=== PATIENT | female | born 1970 | race Caucasian/White ===

== ENCOUNTER 2023-03-25 07:10 | Day surgery (SDC) | payer BC, SELFPAY ==
[2023-03-25 07:25] VITALS: BMI 36.4
[2023-03-25 07:40] VITALS: BP 131/69
[2023-03-25] MEDS: NSS 298 ML IV (08:04)
[2023-03-25 09:32] LABS: ACT-LR - POC 223 Seconds (116-155)
[2023-03-25 09:39] LABS: ACT-LR - POC 203 Seconds (116-155)
[2023-03-25 09:50] VITALS: BP 166/85
--- NOTE | 2023-03-25 09:57 | ITS.CL.CATH ---
Data Deliverables Manager - Catheterization
Cardiac Catheterization
Procedure Report:
CARDIAC CATHETERIZATION REPORT
Date of Procedure: 03/25/2023
Referring: Lucas Aj M.D.
INDICATION: New cardiomyopathy.
PROCEDURE:
1. Left heart catheterization.
2. Coronary angiography.
3. Successful intravascular ultrasound of the proximal LAD and left main coronary artery.
ACCESS:
6 Guinean right radial artery.
CATHETERS:
1. 5 Guinean JR4.
2. 5 Guinean JL 3.5.
3. 6 Guinean JL 3.5 guiding catheter
HEMODYNAMIC DATA
Weight (kg): 99.3
AO (s/d/x, mmHg): 140/85/107
LV (s/x mmHg): 164/15 (A wave to 25)
AV (x, mmHg): 21.4 (pullback)
LEFT VENTRICULOGRAPHY: Not performed.
CORONARY ANGIOGRAPHY
Dominance: Right.
Left Main: Normal size, bifurcating vessel. There is significant angiographic tapering of the ostium of the vessel with pressure dampening on catheter engagement.
LAD: Normal size vessel giving rise to 3 diagonals. There is a densely calcified, 70-80% lesion in the ostium of the LAD. There is a 60-70% lesion in the mid vessel immediately after the second diagonal. The first diagonal is a small, 1.5 mm
vessel. There is a 70% lesion in the origin of the second diagonal.
Ramus: Congenitally absent.
Circumflex: Normal size, nondominant vessel that is essentially a large obtuse marginal. There is a densely calcified, 70�80% lesion in the proximal vessel.
RCA: Large size, dominant vessel with a significant posterolateral arcade. There is a 50% lesion in the origin of the RPDA.
INTERVENTION(S)
1. Successful IVUS of the proximal LAD and left main coronary artery.
Narrative:
The decision was made to perform intracoronary imaging. The diagnostic catheter was removed over a wire and exchanged for 6 Guinean JL 3.5 guiding catheter. The guiding catheter was advanced into the ascending aorta and seated in the left main
coronary artery. Similar to the diagnostic catheter, we noticed significant waveform dampening with engagement of the left main. Additional heparin was given to obtain an ACT greater than 250 seconds. After crossing the lesion with a coronary
wire, an IVUS catheter was advanced through the guiding catheter and into the ostium of the artery. Ring down was performed once the imaging crystal was no longer inside of the guiding catheter. The IVUS catheter was advanced into the proximal LAD.
Intravascular ultrasound was performed in a retrograde fashion using a slow pullback. Intracoronary imaging demonstrated significant atherosclerotic disease throughout the entire proximal LAD and into the left main. The ostial LAD demonstrated an
eccentric, densely calcified napkin ring lesion. In spite of significant catheter dampening, there was no clear left main coronary artery stenosis of significance. Minimal luminal area was >8 mmHg.
Closure Device: Vascular band.
Radiation (mGy): 683.45
DAP (cm2.Gy): 39.2912
Fluoroscopy time (minutes): 6.9
Sedation time (minutes): 40
CONCLUSIONS
1. Right dominant circulation with atherosclerosis within left main coronary artery associated with catheter dampening but no conclusive lesion, and underappreciated, eccentric 70-80%, densely calcified lesion in the ostial LAD, a 60-70% lesion in
the mid LAD, 70% lesion of the origin of the second diagonal, a densely calcified 70-80% lesion in the proximal circumflex and a 50% lesion in the origin of the RPDA.
2. Mildly elevated filling pressures (LVEDP = 15 mmHg at 99.3 kg), possibly appropriate given degree of LV dysfunction.
3. Mild to moderate aortic valve stenosis (aortic valve mean gradient 21.4 mmHg on pullback).
3. Moderate left ventricular dysfunction on echocardiogram (LV ejection fraction = 35% with LAD territory wall motion abnormality).
RECOMMENDATIONS:
1. Expectant management after cardiac catheterization via right radial approach.
2. Limited weight bearing on the right wrist for one week.
3. Discussed with CT surgery regarding optimal revascularization technique given history of radiation for Hodgkin's lymphoma, proximal vessel involvement with dense calcification and relatively young age. She denies overt symptoms, raising concern
for impaired anginal warning system.
4. Continue aspirin. Increase atorvastatin to 40 mg daily.
Copy to: Lucas Aj M.D., Renee Murcia D.O.
Brandin Garcia DO, FACC, FACP
[2023-03-25 10:05] VITALS: BP 175/70
[2023-03-25 10:20] VITALS: BP 168/83
[2023-03-25 10:35] VITALS: BP 201/94
[2023-03-25 10:50] VITALS: BP 180/79
== END 2023-03-25 13:00 | disposition home or self-care (01) ==
LOC: CATH 07:10
PROVIDERS: ATTENDING PHYSICIAN Internal Medicine Cardiovascular Disease; CONSULT PHYSICIAN Thoracic Surgery (Cardiothoracic Vascular Surgery); FAMILY PHYSICIAN Family Medicine; OTHER PHYSICIAN Internal Medicine Cardiovascular Disease
DX: I25.10 Atherosclerotic heart disease of native coronary artery without angina pectoris (principal); I35.0 Nonrheumatic aortic (valve) stenosis; I11.0 Hypertensive heart disease with heart failure; I50.22 Chronic systolic (congestive) heart failure; I42.9 Cardiomyopathy, unspecified; Z85.3 Personal history of malignant neoplasm of breast; I34.0 Nonrheumatic mitral (valve) insufficiency; Z87.891 Personal history of nicotine dependence; Z79.82 Long term (current) use of aspirin
CPT/HCPCS: 92978; C1894; C1887; C1753; 85347; 93458; Q9967

== ENCOUNTER → 2023-04-02 08:30 | Outpatient (REF) | payer BC, SELFPAY ==
[2023-04-02 08:11] VITALS: BMI 36.6
[2023-04-02 09:19] LABS: % Basophils 0.3 % (0-2); % Eosinophils 0.4 % (0-6); % Immature Granulocytes 0.6 % (0-0.5); % Lymphocytes 13.8 % (20.5-51.1); % Monocytes 6.2 % (1.7-9.3); % Neutrophils 78.7 % (42.2-75.2); Absolute Immature Granulocytes 0.1 10^3/uL (0-0.05); Absolute Lymphocytes 1.4 10^3/uL (1.2-3.4); Absolute Monocytes 0.6 10^3/uL (0.1-0.6); Absolute Neutrophils 8.2 10^3/uL (1.4-6.5); Hematocrit 35.3 % (37.0-47.0); Hemoglobin 12.4 g/dL (12.0-16.0); Mean Corp Hgb Conc. 35.1 g/dL (33.0-37.0); Mean Corpuscular Hgb 31.4 pg (27.0-31.0); Mean Corpuscular Volume 89.4 fL (81.0-99.0); Nucleated Red Blood Cells % 0 %; Platelet Count 216 10^3/uL (130-400); Red Blood Cell Count 3.95 10^6/uL (4.20-5.40); Red Cell Dist. Width 12.8 % (11.5-14.5); White Blood Cell Count 10.4 10^3/uL (4.8-10.8)
[2023-04-02 09:32] LABS: INR 1.12; PT 14.2 Sec (11.4-14.6)
[2023-04-02 09:33] LABS: APTT 30.4 Sec (23.4-35.0)
[2023-04-02 09:33] LABS: Urine Albumin Negative (Neg - Trace); Urine Bilirubin Negative (Negative); Urine Character Clear (Clear); Urine Color Straw; Urine Glucose Negative (Negative); Urine Ketone Negative (Negative); Urine Leukocyte Negative (Negative); Urine Nitrite Negative (Negative); Urine Occult Blood Negative (Negative); Urine Urobilinogen Negative (Neg - 1+)
[2023-04-02 09:40] LABS: ALT (SGPT) 31 U/L (0-35); AST (SGOT) 29 U/L (14-36); Albumin 4.4 g/dl (3.5-5.0); Alkaline Phosphatase 82 U/L (38-126); Blood Urea Nitrogen 11 mg/dl (7-17); Calcium 9.4 mg/dl (8.4-10.2); Carbon Dioxide 24 mmol/L (22-30); Chloride 104 mmol/L (98-107); Direct Bilirubin 0.4 mg/dl (0.0-0.4); Estimated Creatinine Clearance > 125 ml/min; Glucose 115 mg/dl (70-99); Sodium 137 mmol/L (135-145); Total Protein 7.3 g/dl (6.3-8.2); eGFR > 60.00
--- NOTE | 2023-04-02 10:13 | CM ---
Met with and Mrs. Shen in [facility]'s. She states prior to admission she resides with her spouse in a two story home with three steps to enter. She states she has a full flight of steps to get to bedroom/full bathroom. She states she has a powder
room on the first floor. She states prior to admission she was independent with ambulation and adls. She states she does not have any DME in the home. She states she has a prescription plan and uses [facility]. She states her spouse works from
home and he will be available to assist in her care if needed. The discharge plan is to return home with her spouse and a home visit by the Cardiothoracic Transitional Care Nurse when medically stable.
We reviewed pre-op and post-op routines. We reviewed the shower instructions. She has the soap,written instructions and the Cardiothoracic Surgery Educational Booklet. We also reviewed restrictions including driving restrictions and sternal
precautions. We discussed a home visit by the Cardiothoracic Transitional Care Nurse. She is agreeable to a home visit. The plan is for CABG on Saturday, April 08.
== END ==
LOC: SDSPAT 08:30
PROVIDERS: ATTENDING PHYSICIAN Thoracic Surgery (Cardiothoracic Vascular Surgery); FAMILY PHYSICIAN Family Medicine; OTHER PHYSICIAN Internal Medicine Cardiovascular Disease
DX: I25.10 Atherosclerotic heart disease of native coronary artery without angina pectoris (principal)
CPT/HCPCS: 36415; 80053; 81003; 82248; 83036; 85025; 85610; 85730; 86850; 86900; 86901; 87070; 93005; 93880; 93970; 94010

== ENCOUNTER → 2023-04-02 14:37 | Outpatient (REF) | payer BC, SELFPAY | LOC: HWRAD 14:37 | PROVIDERS: ATTENDING PHYSICIAN Thoracic Surgery (Cardiothoracic Vascular Surgery); FAMILY PHYSICIAN Family Medicine; REFERRING PHYSICIAN Internal Medicine Cardiovascular Disease | DX: I25.10 Atherosclerotic heart disease of native coronary artery without angina pectoris (principal) | CPT/HCPCS: 71275; 74174; Q9967 ==

== ENCOUNTER 2023-04-08 07:15 | Day surgery (SDC) | payer BC, SELFPAY ==
[2023-04-08] VITALS (12 sets, daily range): BP systolic 101–167; BP diastolic 70–91; BMI 36.2
[2023-04-08] MEDS: NSS 296 ML IV (08:05)
[2023-04-08] MEDS: PLAVIX 600 MG PO (08:26)
[2023-04-08 09:31] LABS: ACT-LR - POC 335 Seconds (116-155)
[2023-04-08 09:54] LABS: ACT-LR - POC 305 Seconds (116-155)
[2023-04-08 10:12] LABS: ACT-LR - POC 281 Seconds (116-155)
[2023-04-08 11:16] LABS: ACT-LR - POC 215 Seconds (116-155)
--- NOTE | 2023-04-08 11:22 | ITS.CL.ANGIO ---
Permit Specialist - Angioplasty
Angioplasty
Procedure Report:
CARDIAC CATHETERIZATION REPORT
Date of Procedure: 04/08/2023
Referring: Alex Russo M.D.
INDICATION: Multivessel disease, ischemic cardiomyopathy, not a surgical candidate.
PROCEDURE:
1. Left heart catheterization.
2. Coronary angiography.
3. Successful IFR of the ostial RPDA.
4. Successful PCI of the proximal circumflex.
5. Successful shockwave coronary lithotripsy of the ostial/proximal LAD.
6. Successful IVUS guided PCI of the ostial/proximal LAD.
7. Successful IFR of the mid LAD.
8. Successful IVUS guided PCI of the mid LAD.
ACCESS:
7 Bhutanese slender right radial artery.
CATHETERS:
1. 6 Bhutanese JR4 guiding catheter.
2. 6 Bhutanese EBU 3.5 guiding catheter with sideholes.
HEMODYNAMIC DATA
Weight (kg): 98.4
AO (s/d/x, mmHg): 122/79/98
LV (s/x mmHg): 143/10
LEFT VENTRICULOGRAPHY: Not performed.
CORONARY ANGIOGRAPHY
Dominance: Right.
Left Main: Normal size, bifurcating vessel. There is no coronary artery disease.
LAD: Normal size vessel giving rise to 3 diagonals. There is a densely calcified, 70-80% lesion in the ostium of the LAD. There is a 60-70% lesion in the mid vessel immediately after the second diagonal. There is a 70% lesion in the origin of
the second diagonal.
Ramus: Congenitally absent
Circumflex: Normal size, nondominant vessel that is essentially a single large obtuse marginal. There is a calcified, 80% lesion in the proximal vessel.
RCA: Large size, dominant vessel with a large posterolateral arcade. There is a 60% lesion in the origin of the RPDA.
INTERVENTION(S)
1. Successful IFR of the 60% RPDA lesion, demonstrating nonocclusive disease (IFR = 0.98).
2. Successful PCI of the 80% proximal circumflex lesion (Xience Skypoint 3.5 x 23 TOMMY, postdilated with a 3.5 NC balloon) with reduction in stenosis to 0%, maintaining ROMEL-3 flow.
3. Successful IVUS of the ostial/proximal LAD.
4. Successful coronary lithotripsy of the 70-80% ostial LAD lesion (Shockwave 3.0 x 12 coronary lithotripsy balloon).
5. Successful PCI of the 70-80% ostial LAD lesion (Xience Skypoint 3.0 x 15 TOMMY, postdilated with a 3.0 NC balloon) with reduction in stenosis to 0%, maintaining ROMEL-3 flow.
6. Successful IFR of the 60-70% mid LAD lesion, demonstrating occlusive disease (IFR = 0.75).
7. Successful PCI of the 60-70% mid LAD lesion (Xience Skypoint 2.5 x 28 TOMMY, postdilated with a 2.5 NC balloon) with reduction in stenosis to 0%, jailing the second diagonal but maintaining ROMEL-3 flow in all vessels.
8. Successful IVUS of the mid LAD lesion, demonstrating good stent apposition with some underexpansion.
9. Successful aggressive post dilation of the mid LAD stent (2.5 x 12 NC balloon to 18 mitchel distally, 18 mitchel mid stent and 20 mitchel in the proximal stent margin) with improved stent expansion.
Narrative:
The decision was made to perform physiologic testing. The 6 Bhutanese JR4 guiding catheter was advanced into the ascending aorta and seated in the right coronary artery. Additional heparin was given to obtain an ACT greater than 250 seconds. An iFR
wire was zeroed outside of the body, then inserted into the guiding sheath. The wire was advanced and the transducer was normalized just outside of the guiding catheter tip. The wire was advanced into the mid RPDA. Three iFR measurements were taken.
The lesion was determined to be nonocclusive (0.98).
We then turned our attention to the left coronary system. The 6 Bhutanese JR4 guiding catheter was removed over a wire and a 7Fr EBU 3.5 guiding catheter was advanced to the aortic root and seated in the left main coronary artery. Unfortunately, this
catheter caused a significant amount of dampening when engaged in the left main coronary artery. There were no 7 Bhutanese EBU 3.5 guiding catheter with sideholes available. This catheter was exchanged for a 6 Bhutanese EBU 3.5 guiding catheter with
sideholes. A Power Turn Flex wire was advanced into the distal obtuse marginal. A BMW wire was advanced into the distal LAD. The 80% proximal circumflex lesion was predilated with a 2.0 x 12 semi-compliant balloon to 12 mitchel. The semicompliant
balloon was removed and a 3.0 x 12 noncompliant balloon was advanced. The lesion was predilated again to 12 mitchel with good release. The non-compliant balloon was removed and a Xience Skypoint 3.5 x 23 drug-eluting stent was advanced. The stent was
deployed at 12 atmospheres. The stent balloon was removed. A 3.5 x 12 noncompliant balloon was advanced into the stent and the proximal stent was postdilated to 12 atmospheres. Angiography was performed in orthogonal views, confirming good stent
expansion and an excellent angiographic result.
We then turned our attention to the LAD system. The decision was made to perform intracoronary imaging. An IVUS catheter was advanced through the guiding catheter and into the ostium of the artery. Ring down was performed once the imaging crystal
was no longer inside of the guiding catheter. The IVUS catheter was advanced into the proximal LAD, beyond the ostial lesion. Intravascular ultrasound was performed in a retrograde fashion using a slow pullback. Intracoronary imaging demonstrated
atherosclerotic disease within the ostial vessel. The distal reference vessel was approximately 3.0 mm in diameter. The proximal/ostial vessel was densely calcified as it joined with the left main coronary artery.
The decision was made to proceed with intracoronary lithotripsy prior to stent placement. A Shockwave 3.0 x 12 coronary lithotripsy balloon was advanced over the wire and into the ostial/proximal LAD lesion. The balloon was sterilely connected to
the controller and prepped to negative pressure. Meticulous care was taken while positioning the shockwave balloon. Once in satisfactory position, the balloon was inflated to 4 mitchel. After confirming good contact with the vessel wall, 10 pulses
were delivered. After delivering 10 pulses, the balloon was inflated to 6 mitchel then deflated. The entire lesion was treated in a similar manner for total of 8 rounds. The balloon was withdrawn and saved for possible second use depending on vessel
expansion.
A Xience Skypoint 3.0 x 15 drug-eluting stent was advanced into the proximal/ostial LAD. Meticulous care was taken while positioning the stent, ensuring that 1 stent cell protruded into the left main coronary artery but flow into the circumflex was
maintained. The stent was deployed at 12 atmospheres. The stent balloon was removed. The previously used a 3.0 x 15 noncompliant balloon was advanced into the stent and the stent was postdilated to 14 atmospheres. Angiography was performed in
orthogonal views, confirming good stent expansion and an excellent angiographic result.
We then turned our attention to the 60-70% mid LAD lesion. The decision was made to perform physiologic testing. The power turn flex wire was withdrawn from the circumflex. An iFR wire was zeroed outside of the body, then inserted into the
guiding sheath. The wire was advanced and the transducer was normalized just outside of the guiding catheter tip. The wire was advanced into the distal LAD, beyond the lesion in question. Three iFR measurements were taken. The lesion was determined
to be occlusive (0.75). Step up was observed in the proximal LAD, proximal to the origin of the second diagonal.
The decision was made to proceed with percutaneous coronary intervention. The power Turn Flex wire was advanced next to the BMW wire and then into the second diagonal for protection. The 60-70% mid LAD lesion was predilated with a 2.0 x 12
semi-compliant balloon to 12 mitchel. The semi-compliant balloon was removed and a Xience Skypoint 2.5 x 28 drug-eluting stent was advanced. The stent was deployed at 12 atmospheres. The stent balloon was removed. A 2.5 x 15 noncompliant balloon was
advanced into the stent and the stent was postdilated to 12 atmospheres in the distal aspect and 14 mitchel in the proximal margin.
IVUS was repeated in the LAD. This showed that the mid LAD stent was well opposed but underexpanded in 2 areas. This did confirm that the reference vessel was appropriately sized to 2.5 mm. The IVUS catheter was withdrawn and a fresh, 2.5 x 12 NC
balloon was advanced. The distal stent was postdilated to 18 mitchel. The mid stent was postdilated to 18 mitchel. The proximal stent was postdilated to 20 mitchel. The noncompliant balloon was withdrawn.
Angiography was performed in orthogonal views, confirming good stent expansion and an excellent angiographic result. The coronary wire was withdrawn and the guide was disengaged from the artery. The catheter was removed over a standard J-wire.
Closure Device: Vascular band.
Radiation (mGy): 1932.80
DAP (cm2.Gy): 152.29
Fluoroscopy time (minutes): 29.8
Sedation time (minutes): 140
CONCLUSIONS
1. Severe, multivessel coronary artery disease. Not a candidate for surgery secondary to prior radiation with Hodgkin's lymphoma, flap creation with ligation and redirection of bilateral AZUL grafts.
2. Right dominant circulation with a nonocclusive 60% ostial RPDA lesion (IFR = 0.98), and 80% proximal circumflex lesion status post successful PCI (Xience Skypoint 3.5 x 23 TOMMY, postdilated proximally with a 3.5 NC balloon) with reduction in
stenosis to 0%, maintaining ROMEL-3 flow; a densely calcified ostial/proximal LAD lesion status post successful IVUS guided coronary lithotripsy (shockwave 3.0 x 12 lithotripsy balloon) and PCI (Xience Skypoint 3.0 x 15 TOMMY, postdilated with a 3.0 NC
balloon) with reduction in stenosis to 0%, maintaining ROMEL-3 flow; and occlusive 60-70% mid LAD lesion (IFR = 0.75) status post successful IVUS guided PCI (Xience Skypoint 2.5 x 28 TOMMY, postdilated with a 2.5 NC balloon to 18 mitchel in the mid and
distal segments, 20 mitchel in the proximal margin) with reduction in stenosis to 0%, maintaining ROMEL-3 flow.
3. Normal filling pressures (LVEDP = 10 mmHg at 98.4 kg).
RECOMMENDATIONS:
1. Expectant management after cardiac catheterization via right radial approach.
2. Limited weight bearing on the right for one week.
3. Dual antiplatelet therapy with aspirin and clopidogrel for at least 12 months, possibly lifelong.
4. Guideline directed medical therapy as hemodynamics will tolerate.
5. Tentative plans for upgrade of pacemaker to CLEARING SUPERVISOR�D at the discretion of electrophysiology.
Copy to: Alex Russo M.D., Hollie Gomez M.D., Renee Murcia D.O.
Brandin Garcia DO, FACC, FACP
[2023-04-08] MEDS: NSS 1000 IV (12:23)
--- NOTE | 2023-04-08 12:29 | PTCARENOTE ---
Received patient from the civil laboratory technician after PCI via right radial. Radial band in place with palpable radial pulse, no bleeding or hematoma noted. V paced on the monitor. Patient denies any pain or discomfort. Oriented to the room and plan of care,
monitoring VS. Patient assisted to the bathroom and voided qs. at the bedside now, patient ordering lunch. Call mcdowell within reach.
[2023-04-08 15:01] LABS: ACT-LR - POC > 397 Seconds (116-155)
--- NOTE | 2023-04-08 15:46 | PTCARENOTE ---
Band removed from right wrist, dressing clean and dry with radial pulse palpable. Patient assisted to the bathroom. Denies any pain or discomfort, at the bedside.
[2023-04-08] MEDS: ZESTRIL 20 MG PO (17:39)
--- NOTE | 2023-04-09 02:40 | PTCARENOTE ---
Patient denied any complaints of pain or discomfort when questioned earlier. Right radial cath site wnl. V-Paced on the monitor in the 80's. Sleeping at present.
[2023-04-09 04:17] VITALS: BP 128/87
[2023-04-09 04:41] VITALS: BMI 36.0
[2023-04-09 04:57] LABS: Hematocrit 33.3 % (37.0-47.0); Hemoglobin 11.7 g/dL (12.0-16.0); Mean Corp Hgb Conc. 35.1 g/dL (33.0-37.0); Mean Corpuscular Volume 88.1 fL (81.0-99.0); Mean Platelet Volume 11.7 fL (7.4-10.4); Platelet Count 209 10^3/uL (130-400); Red Blood Cell Count 3.78 10^6/uL (4.20-5.40); Red Cell Dist. Width 12.9 % (11.5-14.5); White Blood Cell Count 9.1 10^3/uL (4.8-10.8)
[2023-04-09 05:22] LABS: Blood Urea Nitrogen 9 mg/dl (7-17); Calcium 9.2 mg/dl (8.4-10.2); Carbon Dioxide 24 mmol/L (22-30); Chloride 106 mmol/L (98-107); Estimated Creatinine Clearance > 125 ml/min; Glucose 114 mg/dl (70-99); HDL Cholesterol 28 mg/dl; LDL Cholesterol, Calculated 75 mg/dl; Potassium 3.9 mmol/L (3.5-5.1); Sodium 138 mmol/L (135-145); Total Cholesterol 128 mg/dl (50-199); Triglyceride 125 mg/dl (10-149); Very Low Density Lipoprotein 25 mg/dl (0-30); eGFR > 60.00
--- NOTE | 2023-04-09 08:25 | W.PN.CARDCBS ---
Addendum entered and electronically signed by Ghanshyam Lopez MD 04/09/23 10:04:
-
I saw and examined the patient.
The OUTSIDE B2B SALES or PA's note was reviewed and I agree with the note.
Comment: cath site stable
she feels well and is ok for dc to home
Original Note:
Today's Communication / Plan
-
DAPT w/asa, plavix
echo in 2-3 months
Bi-V device upgrade per EP
cardiac rehab
home today
Impression / Plan
-
PCP: Renee Murcia MD
CDY: Jarvis Knapp MD
52 y/o, PMH sig for NICM w/chronic diastolic HFpEF 55-60%, LBBB, CHB w/PPM, Hodgkin's lymphoma w/chemo/mantle radiation (1996), BrCa w/bilat mastectomies w/TRAM flap (2017). Routine echo last month with new drop in EF to 35% and apical LAD WMA,
mild-mod MR. Cath on 03/25 with severe multivessel CAD and was referred to CTS. Ultimately not a candidate d/t prior radiation, surgeries.
Presents now for multivessel PCI.
[facility] 04/08-
60% RPDA- iFR negative (0.98)
80% prox LCx angioplasty/TOMMY
70-80% ost/prox LAD IVUS, lithotripsy, angioplasty/TOMMY
60-70% mid LAD iFR +(0.75), s/p angioplasty/TOMMY with aggressive post dilation
IMPRESSION/PLAN:
Severe multivessel CAD
s/p LCx PCI, ost/prox LAD lithotripsy/PCI, mid LAD PCI
Tele- Vpaced w/underlying sinus rhythm, 80s
Radial cath site stable
Plavix loaded post cath, to remain on DAPT w/asa, plavix
continue metoprolol, lisinopril
cardiac rehab
followup w/Dr. Knapp as scheduled
home today
Cardiomyopathy/Chronic systolic HFrEF 35%/LBBB
new drop in EF on echo 02/2023
could benefit from epicardial LV lead placement for Bi-V PPM upgrade
outpt echo in 2-3 months
continue max maikel GDMT with lisinopril, metoprolol, lasix, spironolactone
consider SGLT2 inhibitor per primary cards
HLD- lipid profile noted, continue atorvastatin as before
HTN- stable on current meds
Hodgkin Lymphoma w/Mantle radiation/chemo (1996)
Breast Cancer, s/p bilat mastectomies w/TRAM flap reconstruction (02/2017)
Progress Note - Can Maker
Subjective
Date of Service: April 09, 2023
Denies cp/palps/dyspnea
oob ambulating
cath site without pain
Objective
Labs:
04/09/23 04:25
04/09/23 04:25
Labs
Hgb 11.7 g/dL (12.0-16.0) L 04/09/23 04:25
Hct 33.3 % (37.0-47.0) L 04/09/23 04:25
Plt Count 209 10^3/uL (130-400) 04/09/23 04:25
Sodium 138 mmol/L (135-145) 04/09/23 04:25
Potassium 3.9 mmol/L (3.5-5.1) 04/09/23 04:25
BUN 9 mg/dl (7-17) 04/09/23 04:25
Creatinine 0.5 mg/dL (0.6-1.0) L 04/09/23 04:25
Glucose 114 mg/dl (70-99) H 04/09/23 04:25
Vital Signs and I&O:
Vital Signs
Temp Pulse Resp BP Pulse Ox
97.9 F 91 16 128/87 93
04/09/23 07:39 04/09/23 07:00 04/09/23 07:39 04/09/23 04:17 04/09/23 07:39
Vital Signs
Temp Pulse Resp BP Pulse Ox
97.9 F 91 16 128/87 93
04/09/23 07:39 04/09/23 07:00 04/09/23 07:39 04/09/23 04:17 04/09/23 07:39
Intake & Output
04/07/23 04/08/23 04/09/23 04/10/23
06:59 06:59 06:59 06:59
Intake Total 1939 480 / 480
Balance 1939 480 / 480
Physical Exam
Physical Exam
AAOx3, MAEE 5/5
RRR S1 S2 no murmurs
CTA bilat, non labored
soft abd, + bs
right radial cath site without ht/bleeding, non tender
bilat extremities w/papable distal pulses, no edema
--- NOTE | 2023-04-09 09:16 | W.DS.TRANS ---
DC Summary - Journal Clerk
-
Discharge Instructions:
Sleep Apnea Risk Intermediate
Discharge Diagnosis/Procedures Angioplasty and stent x1 to Left Circumflex
artery, Shockwave with angioplasty and stent x2
to Left Anterior Descending artery
Diet Low Cholesterol
Driving Restrictions No driving for 24 hours
Other Services Cardiac Rehab
Instructions:
Stand-Alone Forms: DC Instructions- Cath/EP Lab
Changes to Home Medications: Yes
Discharge Medications:
DC Medications w/original date entered in [employer]
furosemide 20 mg tablet (Lasix) 20 mg PO DAILY Fluid retention/Swelling 04/15/21
lisinopril 20 mg tablet 20 mg PO QPM Blood pressure 04/15/21
multivitamin with folic acid 400 mcg tablet (Tab-A-Richard) 1 tab PO DAILY Supplement 04/15/21
spironolactone 25 mg tablet 12.5 mg PO DAILY Fluid retention/Swelling 04/15/21
aspirin 81 mg tablet,delayed release 81 mg PO DAILY 03/25/23
atorvastatin 40 mg tablet 40 mg PO DAILY #90 tabs 03/25/23
metoprolol succinate 50 mg tablet,extended release 24 hr 50 mg PO DAILY 03/25/23
nitroglycerin 0.4 mg sublingual tablet 0.4 mg sublingual [id number] PRN chest pain #25 tabs 03/25/23
clopidogrel 75 mg tablet 75 mg PO DAILY #90 tabs 04/09/23
Home Medication Changes
NEW: clopidogrel
Pending Results: No
[2023-04-09 10:25] VITALS: BP 124/72
[2023-04-09] MEDS: LASIX 20 MG PO (10:28)
[2023-04-09] MEDS: TOPROL XL 50 MG PO (10:28)
[2023-04-09] MEDS: PLAVIX 75 MG PO (10:28)
[2023-04-09] MEDS: LIPITOR 40 MG PO (10:28)
[2023-04-09] MEDS: ALDACTONE 12.5 MG PO (10:28)
[2023-04-09] MEDS: ASPIR LOW (ENTERIC COATED) 81 MG PO (10:28)
--- NOTE | 2023-04-09 11:04 | CM ---
spoke to pt in room, she is prev indep, lives withher husb in a 2 story home with 4 steps to enter. she denies any dc planning needs or dme's. plan is for dc to home when medically stable.
== END 2023-04-09 11:24 | disposition home or self-care (01) ==
LOC: CATH 07:15
PROVIDERS: Nurse Practitioner; ATTENDING PHYSICIAN Internal Medicine Cardiovascular Disease; FAMILY PHYSICIAN Family Medicine
DX: I25.10 Atherosclerotic heart disease of native coronary artery without angina pectoris (principal); I25.5 Ischemic cardiomyopathy; Z95.5 Presence of coronary angioplasty implant and graft; I11.0 Hypertensive heart disease with heart failure; I50.22 Chronic systolic (congestive) heart failure; I44.7 Left bundle-branch block, unspecified; I44.2 Atrioventricular block, complete; E78.5 Hyperlipidemia, unspecified; C81.90 Hodgkin lymphoma, unspecified, unspecified site; Z85.3 Personal history of malignant neoplasm of breast; Z90.13 Acquired absence of bilateral breasts and nipples; Z79.82 Long term (current) use of aspirin; Z79.02 Long term (current) use of antithrombotics/antiplatelets
CPT/HCPCS: 92978; 92972; 80048; 80061; 85027; 85347; 93005; 93458; 93571; 93572; C1725; C1753; C1769; C1874; C1887; C1894; C9600; C9601; Q9967

== ENCOUNTER 2023-05-17 08:15 | Outpatient (RCR) | payer BC, SELFPAY | END 2023-05-17 23:59 | disposition home or self-care (01) | LOC: CRHB 08:15 | PROVIDERS: ATTENDING PHYSICIAN Internal Medicine Cardiovascular Disease; FAMILY PHYSICIAN Family Medicine | DX: I25.10 Atherosclerotic heart disease of native coronary artery without angina pectoris (principal); Z95.5 Presence of coronary angioplasty implant and graft | CPT/HCPCS: 93797; 93798 ==

== ENCOUNTER → 2023-06-06 11:00 | Outpatient (REF) | payer BC, SELFPAY | LOC: HWRAD 11:00 | PROVIDERS: ATTENDING PHYSICIAN Surgery Vascular Surgery; FAMILY PHYSICIAN Family Medicine | DX: I65.29 Occlusion and stenosis of unspecified carotid artery (principal) | CPT/HCPCS: 70496; 70498; Q9967 ==

== ENCOUNTER 2023-06-17 08:23 | Outpatient (RCR) | payer BC, SELFPAY | END 2023-06-17 23:59 | disposition home or self-care (01) | LOC: CRHB 08:23 | PROVIDERS: ATTENDING PHYSICIAN Internal Medicine Cardiovascular Disease; FAMILY PHYSICIAN Family Medicine | DX: Z95.5 Presence of coronary angioplasty implant and graft (principal); I25.10 Atherosclerotic heart disease of native coronary artery without angina pectoris | CPT/HCPCS: 93797; 93798 ==

== ENCOUNTER 2023-07-11 08:36 | Outpatient (RCR) | payer BC, SELFPAY | END 2023-07-11 23:59 | disposition home or self-care (01) | LOC: CRHB 08:36 | PROVIDERS: ATTENDING PHYSICIAN Internal Medicine Cardiovascular Disease; FAMILY PHYSICIAN Family Medicine | DX: Z95.5 Presence of coronary angioplasty implant and graft (principal); I25.10 Atherosclerotic heart disease of native coronary artery without angina pectoris | CPT/HCPCS: 93797; 93798 ==

== ENCOUNTER 2023-08-13 11:05 | Emergency (ER) | payer BC, SELFPAY ==
--- NOTE | 2023-08-13 11:08 | ED.GENMED ---
History of Present Illness
<Angela Alston PA-C - Last Filed: 08/13/23 15:00>
General
Chief Complaint: Fainting/Passed Out
Source: patient
Exam Limitations: none
Time Seen by Provider: 08/13/23 11:06
Nursing documentation reviewed up to this point in time: agreed with
History of Present Illness
History of Present Illness:
This is a 53 y/o female with a past medical hx of CAD, CHF, Hodgkin's lymphoma, breast cancer, hypertension, hyperlipidemia presenting emergency department today with concerns of a syncopal episode. Patient was sent here by her car knocker
Aria. Patient was going for her echo today when she went back out to the waiting room after the procedure and started to feel dizzy, lightheaded, and subsequently lost consciousness, this episode lasted around 10 to 20 seconds. A rapid
response was called in the cardiology suite. When emergency rooms staff arrived, she is diaphoretic and pale, and her blood pressure was low. Upon arrival to the emergency department room, her pulse ox was noted to be 90 and she was started on 2 L
of oxygen, however patient denies feeling short of breath. On my arrival to the room to see patient, she states that she feels well and back to her baseline, only notes some mild fatigue. Denies chest pain. Of note, patient was given IV contrast
Lumason for the echo and her car knocker is concerned that this may represent a reaction to the wound medicine versus vasovagal syncope.
Past History
<Angela Alston PA-C - Last Filed: 08/13/23 15:00>
Past History
ED Past Medical History: Cancer (Breast cancer) and CHF
ED Past Surgical History: Other (Bilateral mastectomy)
Social History
Tobacco: Non-smoker
Alcohol: None
Drug: None
Personal:
Living: with family
Review of Systems
<Angela Alston PA-C - Last Filed: 08/13/23 15:00>
Review of Systems
All Other Systems: ROS reviewed and negative except as documented in HPI and ROS
Phy Exam
<Angela Alston PA-C - Last Filed: 08/13/23 15:00>
Physical Exam
Physical Exam:
General: Patient is well appearing and in no acute distress; non-toxic
Skin: Warm and dry, no rashes or lesions
Head: Normocephalic, atraumatic
Eyes: Sclera non-icteric. EOMs intact. PERRLA.
Cardiac: Systolic murmur noted, otherwise regular rate and rhythm (looked back at old records, mild aortic stenosis noted)
Peripheral Vascular: No lower extremity swelling or edema
Pulm: Normal respiratory effort, no wheezes, rales, rhonchi
Abdomen: No abdominal tenderness to palpation
Neuro: CN II-XII intact, no focal neurologic deficits.
Psychiatric: Appropriate mood and affect.
Course
<Angela Alston PA-C - Last Filed: 08/13/23 15:00>
Orders/Labs/Results
Orders:
Orders
08/13/23 11:16
EKG [Electrocardiogram (*1)] Urgent
Reason for Study: Syncope
EKG- Treatment ONCE
08/13/23 11:36
Interrogate Pacemaker- Treatment ONCE
08/13/23 12:24
Complete Blood Count/With Diff Urgent
Comprehensive Metabolic Panel Urgent
08/13/23 12:32
Dexamethasone Sod Phosphate [Decadron] 10 mg IV NOW STA
Diphenhydramine [Benadryl] 25 mg IV NOW STA
Famotidine [Pepcid] 20 mg PO NOW STA
08/13/23 12:35
Famotidine [Pepcid] 20 mg .ROUTE .STK-MED ONE
08/13/23 12:40
Famotidine [Pepcid] 20 mg IV NOW STA
Abnormal Lab Results
08/13/23
12:24
MPV 11.5 H fL
(7.4-10.4)
Abs Immat Gran (auto) 0.1 H 10^3/uL
(0-0.05)
Absolute Neuts (auto) 8.1 H 10^3/uL
(1.4-6.5)
Absolute Lymphs (auto) 0.9 L 10^3/uL
(1.2-3.4)
Immature Gran % 1.1 H %
(0-0.5)
Neutrophils % 87.9 H %
(42.2-75.2)
Lymphocytes % 10.2 L %
(20.5-51.1)
Monocytes % 0.5 L %
(1.7-9.3)
Chloride 110 H mmol/L
(98-107)
Carbon Dioxide 21 L mmol/L
(22-30)
Glucose 103 H mg/dl
(70-99)
08/13/23 12:24
08/13/23 12:24
Vital Signs
Initial and Last Documented VS:
Initial Vital Signs
Temp Pulse Resp BP Pulse Ox
97.8 F 60 13 102/71 90
08/13/23 11:12 08/13/23 11:12 08/13/23 11:12 08/13/23 11:12 08/13/23 11:12
Last Documented Vital Signs
Temp Pulse Resp BP Pulse Ox
97.8 F 74 16 135/71 95
08/13/23 11:12 08/13/23 13:00 08/13/23 13:00 08/13/23 13:00 08/13/23 13:00
Lisalt;Tobi Gordillo MD - Last Filed: 08/13/23 21:55>
Orders/Labs/Results
Orders:
Orders
08/13/23 11:16
EKG [Electrocardiogram (*1)] Urgent
Reason for Study: Syncope
EKG- Treatment ONCE
08/13/23 11:36
Interrogate Pacemaker- Treatment ONCE
08/13/23 12:24
Complete Blood Count/With Diff Urgent
Comprehensive Metabolic Panel Urgent
08/13/23 12:32
Dexamethasone Sod Phosphate [Decadron] 10 mg IV NOW STA
Diphenhydramine [Benadryl] 25 mg IV NOW STA
Famotidine [Pepcid] 20 mg PO NOW STA
08/13/23 12:35
Famotidine [Pepcid] 20 mg .ROUTE .STK-MED ONE
08/13/23 12:40
Famotidine [Pepcid] 20 mg IV NOW STA
Abnormal Lab Results
08/13/23
12:24
MPV 11.5 H fL
(7.4-10.4)
Abs Immat Gran (auto) 0.1 H 10^3/uL
(0-0.05)
Absolute Neuts (auto) 8.1 H 10^3/uL
(1.4-6.5)
Absolute Lymphs (auto) 0.9 L 10^3/uL
(1.2-3.4)
Immature Gran % 1.1 H %
(0-0.5)
Neutrophils % 87.9 H %
(42.2-75.2)
Lymphocytes % 10.2 L %
(20.5-51.1)
Monocytes % 0.5 L %
(1.7-9.3)
Chloride 110 H mmol/L
(98-107)
Carbon Dioxide 21 L mmol/L
(22-30)
Glucose 103 H mg/dl
(70-99)
08/13/23 12:24
08/13/23 12:24
Vital Signs
Initial and Last Documented VS:
Initial Vital Signs
Temp Pulse Resp BP Pulse Ox
97.8 F 60 13 102/71 90
08/13/23 11:12 08/13/23 11:12 08/13/23 11:12 08/13/23 11:12 08/13/23 11:12
Last Documented Vital Signs
Temp Pulse Resp BP Pulse Ox
97.8 F 74 16 135/71 95
08/13/23 11:12 08/13/23 13:00 08/13/23 13:00 08/13/23 13:00 08/13/23 13:00
<Angela Alston PA-C - Last Filed: 08/13/23 15:00>
MDM/Problems Addressed
Differential Diagnosis Includes:
ddx include vasovagal syncope, medication reaction, dysrhythmia
MDM/Problems Addressed:
Syncopal Episode:
This is a 53 y/o female with a past medical hx of CAD, CHF, Hodgkin's lymphoma, breast cancer, hypertension, hyperlipidemia presenting emergency department today with concerns of a syncopal episode. Patient was sent here by her car knocker
Aria. Patient had a syncopal episode following administration of lumason. She subsequently started to develop abdominal pain, nausea, and dizziness. Considering her symptoms occurred shortly after administration of this drug, this is the
second time receiving this drug, and considering her symptoms improved with famotidine, decadron, and benadryl, this likely represents an allergic reaction. CBC and CMP unremarkable. VSS. Pacemaker interrogation negative for any dysrhythmia. Patient
asymptomatic upon discharge. Patient denies chest pain, shortness of breath. Patient stable for discharge to follow up with Dr. Goel.
Chronic conditions affecting care:
CAD, CHF, Hodgkin's lymphoma, breast cancer, hypertension, hyperlipidemia
Acute Exacerbation and/or Progression of Chronic Illness:
CAD, CHF, Hodgkin's lymphoma, breast cancer, hypertension, hyperlipidemia
<Angela Alston PA-C - Last Filed: 08/13/23 15:00>
*Pulse Oximetry
Patient hypoxic: no
*Intelligence Consultant Interpretation
Rate: normal
Interpretation: normal
Heart Rate: 65
*Critical Care Note
Total Time (30-74mins, 75-104mins- exclusive of procedures): Not Applicable
Data Reviewed
Review of Other/Old Records Reveals: Discharge Summary (reviewed discharge summary from 04/09/23)
Source: patient and records
<Angela Alston PA-C - Last Filed: 08/13/23 15:00>
Patient Management
Escalation/DeEscalation of care consider admission/obs:
Admission not indicated. Reviewed this case with my attending Dr. Gordillo.
<Angela Alston PA-C - Last Filed: 08/13/23 15:00>
Update Note
Update Note:
Patient slightly hypoxic to presentation to ER with O2 sat 89-90%, placed on 2L sating 95%, patient denies shortness of breath, lung sounds remain clear.
Dr. Gordillo and I were called into the room an hour after patient has been in the ER after patient had an acute episode of dizziness and abdominal pain. We subsequently gave her famotidine, Benadryl, Decadron to address a potential allergic reaction.
Lung sounds clear.
1:11 PM�reassessed patient, states she is feeling a lot better but just a bit drowsy. Patient denies any shortness of breath, any chest pain, any tongue or lip swelling.
2:28 PM--patient states that she feels a lot better. Patient was able to walk without any symptoms, walking pulse ox stable without oxygen, patient stable for discharge.
ED Attending Note
<Angela Alston PA-C - Last Filed: 08/13/23 15:00>
-
Portions of this chart may have been created with voice recognition software.� Occasional wrong word or��sound alike� substitutions may have occurred due to the inherent limitations of voice recognition software.
<Tobi Gordillo MD - Last Filed: 08/13/23 21:55>
ED Attending Note
Patient seen and examined by attending physician: Yes
ED Attending Note:
Pt presents to ED secondary to dizziness, nausea and weakness, shortly after receiving iv injection for stress echocardiogram. Pt lost consciousness for approx 10-20 seconds while waiting in the waiting room. Denies fever/chills. Denies chest pain.
Denies sob. Denies headache. Denies previous history of similar symptoms. When the incident occurred, rapid response was called in the hospital. Pt was initially found to be pale, diaphoretic and hypotensive.
General: well nourished female, in mild distress. afebrile
Heent: nc/at. eomi
Lungs: cta.
Heart: rrr. no murmur.
Abd: soft and nontender.
Neuro: aao x 3. no focal neurological deficit.
History and exam concerning for likely an acute reaction to iv injection. Pt given treatment via benadryl, pepcid, and decadron with improvement in symptoms. Pt able to ambulate independently with steady gait, at time of discharge. Pt is
hemodynamically stable, without any distress at time of discharge.
Discharge Plan
Departure
Patient Disposition: Home (Routine Discharge)
Date of Disposition: 08/13/23
Time of Disposition: 14:28
Patient with high blood pressure during this ER visit?: Yes
Condition: Good
Discharge Problem:
Allergic reaction
Instructions: Dizziness, Nonvertigo, (DC), Allergic Reaction ED, BLOOD PRESSURE
Prescriptions:
No Action
lisinopril 20 MG tablet
20 mg PO QPM
furosemide [Lasix] 20 MG tablet
20 mg PO DAILY
spironolactone 25 MG tablet
12.5 mg PO DAILY
multivitamin with folic acid [Tab-A-Richard] 1 TABLET tablet
1 tab PO DAILY
aspirin 81 mg Tablet,Delayed Release (Dr/Ec)
81 mg PO DAILY
metoprolol succinate 50 mg Tablet Extended Release 24 Hr
50 mg PO DAILY
atorvastatin 40 mg tablet
40 mg PO DAILY Qty: 90 3RF
nitroglycerin 0.4 mg tablet, sublingual
0.4 mg sublingual [id number] PRN (Reason: chest pain) Qty: 25 2RF
clopidogrel 75 mg Tablet
75 mg PO DAILY Qty: 90 3RF
Referrals:
Renee Murcia, DO [Family Provider] -
Activity Restrictions/Additional Instructions:
Please schedule a follow up appointment with Dr. Goel.
Please return emergency department should you experience a recurrence of your symptoms, tongue or lip swelling, trouble breathing, chest pain, abdominal pain, fevers or chills, syncopal episodes, dizziness, or any other signs or symptoms concerning
to you.
Interventions
Interventions:
*Risk Screen - Suicide Last Done: 08/13/23 11:12
*General Assessment Last Done: 08/13/23 11:12
*Neglect/Abuse Screening Last Done: 08/13/23 11:40
ED- Fall Risk Assessment Last Done: 08/13/23 11:40
*ED COVID-19 Vaccine History Last Done: 08/13/23 11:40
*Nursing Disposition Last Done: 08/13/23 14:51
ED- Cardiac Assessment Last Done: 08/13/23 11:40
ED- Neurological Assessment Last Done: 08/13/23 11:40
Discharge Date and Time
Discharge Date/Time: 08/13/23 14:52
Print Language: FAROESE
[2023-08-13 11:12] VITALS: BP 102/71; BMI 37.6
[2023-08-13 12:35] LABS: % Basophils 0.2 % (0-2); % Eosinophils 0.1 % (0-6); % Immature Granulocytes 1.1 % (0-0.5); % Lymphocytes 10.2 % (20.5-51.1); % Monocytes 0.5 % (1.7-9.3); % Neutrophils 87.9 % (42.2-75.2); Absolute Immature Granulocytes 0.1 10^3/uL (0-0.05); Absolute Lymphocytes 0.9 10^3/uL (1.2-3.4); Absolute Monocytes 0.1 10^3/uL (0.1-0.6); Absolute Neutrophils 8.1 10^3/uL (1.4-6.5); Mean Corp Hgb Conc. 33.3 g/dL (33.0-37.0); Mean Corpuscular Hgb 30.2 pg (27.0-31.0); Mean Corpuscular Volume 90.7 fL (81.0-99.0); Mean Platelet Volume 11.5 fL (7.4-10.4); Nucleated Red Blood Cells % 0 %; Platelet Count 189 10^3/uL (130-400); Red Blood Cell Count 4.63 10^6/uL (4.20-5.40); Red Cell Dist. Width 13.2 % (11.5-14.5); White Blood Cell Count 9.2 10^3/uL (4.8-10.8)
[2023-08-13] MEDS: BENADRYL 25 MG IV (12:39)
[2023-08-13] MEDS: DECADRON 10 MG IV (12:39)
[2023-08-13] MEDS: PEPCID 20 MG IV (12:40)
[2023-08-13 12:51] LABS: ALT (SGPT) 24 U/L (0-35); AST (SGOT) 35 U/L (14-36); Albumin 4.2 g/dl (3.5-5.0); Alkaline Phosphatase 77 U/L (38-126); Blood Urea Nitrogen 16 mg/dl (7-17); Calcium 9.6 mg/dl (8.4-10.2); Carbon Dioxide 21 mmol/L (22-30); Chloride 110 mmol/L (98-107); Estimated Creatinine Clearance 118 ml/min; Glucose 103 mg/dl (70-99); Sodium 143 mmol/L (135-145); Total Protein 6.8 g/dl (6.3-8.2); eGFR > 60.00
[2023-08-13 13:00] VITALS: BP 135/71
== END 2023-08-13 14:52 | disposition home or self-care (01) ==
LOC: EMR 11:05
PROVIDERS: Physician Assistant; EMERGENCY PHYSICIAN Emergency Medicine; FAMILY PHYSICIAN Family Medicine
DX: R55 Syncope and collapse (principal); R10.9 Unspecified abdominal pain; R11.0 Nausea; T50.995A Adverse effect of other drugs, medicaments and biological substances, initial encounter; Y92.238 Other place in hospital as the place of occurrence of the external cause; I25.10 Atherosclerotic heart disease of native coronary artery without angina pectoris; C81.90 Hodgkin lymphoma, unspecified, unspecified site; I11.0 Hypertensive heart disease with heart failure; I50.9 Heart failure, unspecified; E78.5 Hyperlipidemia, unspecified; Z95.0 Presence of cardiac pacemaker; Z95.5 Presence of coronary angioplasty implant and graft; Z85.3 Personal history of malignant neoplasm of breast; Z90.13 Acquired absence of bilateral breasts and nipples
CPT/HCPCS: 99285; 93288; 96374; 96375 ×2; 80053; 85025; 93005; 93306; Q9950

== ENCOUNTER 2023-09-19 08:19 | Inpatient (IN) | payer BC, SELFPAY ==
[2023-09-16 10:08] VITALS: BMI 35.4
[2023-09-16 10:55] LABS: % Basophils 0.4 % (0-2); % Eosinophils 0.5 % (0-6); % Immature Granulocytes 0.8 % (0-0.5); % Lymphocytes 19.9 % (20.5-51.1); % Monocytes 6.9 % (1.7-9.3); % Neutrophils 71.5 % (42.2-75.2); Absolute Immature Granulocytes 0.1 10^3/uL (0-0.05); Absolute Lymphocytes 1.5 10^3/uL (1.2-3.4); Absolute Monocytes 0.5 10^3/uL (0.1-0.6); Absolute Neutrophils 5.5 10^3/uL (1.4-6.5); Hematocrit 39.1 % (37.0-47.0); Hemoglobin 13.6 g/dL (12.0-16.0); Mean Corp Hgb Conc. 34.8 g/dL (33.0-37.0); Mean Corpuscular Hgb 30.5 pg (27.0-31.0); Mean Corpuscular Volume 87.7 fL (81.0-99.0); Nucleated Red Blood Cells % 0 %; Platelet Count 194 10^3/uL (130-400); Red Blood Cell Count 4.46 10^6/uL (4.20-5.40); Red Cell Dist. Width 13.7 % (11.5-14.5); White Blood Cell Count 7.6 10^3/uL (4.8-10.8)
[2023-09-16 11:01] LABS: INR 1.04; PT 13.4 Sec (11.4-14.6)
[2023-09-16 11:16] LABS: Blood Urea Nitrogen 16 mg/dl (7-17); Calcium 10.2 mg/dl (8.4-10.2); Carbon Dioxide 25 mmol/L (22-30); Chloride 105 mmol/L (98-107); Estimated Creatinine Clearance 121 ml/min; Glucose 109 mg/dl (70-99); Potassium 4.3 mmol/L (3.5-5.1); Sodium 140 mmol/L (135-145); eGFR > 60.00
[2023-09-19] VITALS (16 sets, daily range): BP systolic 96–130; BP diastolic 24–71; BMI 35.9; BMI 35.8
[2023-09-19] MEDS: BACTROBAN NASAL 1 GRAM NASAL (09:03)
[2023-09-19] MEDS: PERIDEX 0.12% ORAL RINSE 15 ML PO (09:03)
--- NOTE | 2023-09-19 09:25 | W.SUR.PREOP ---
Pre-Operative Surgical Note
-
I have examined this patient prior to the performance of the scheduled procedure.
The patient's condition is unchanged from the time of the current History and
Physical and the patient is able to undergo the scheduled procedure.
--- NOTE | 2023-09-19 12:00 | W.SUR.POST ---
Surgical Immediate Post Op
Note
Pre Op Diagnosis: Carotid stenosis
Post Op Diagnosis: Carotid stenosis
Procedure Performed: Right carotid endarterectomy with bovine pericardial patch angioplasty and EEG monitoring
Primary Surgeon: Akira
Assist: López MOYA
Anesthesia: General
Estimated Blood Loss: 15 cc
Fluids: See anesthesia flowsheet
Drains/Shunts: None
Specimens/Cultures: Carotid plaque
Doppler/Duplex/Angio (Y/N): Y
Complications: None
Operative Findings: Woke from anesthesia moving all extremities
--- NOTE | 2023-09-19 12:37 | CON.INTV ---
Consultation
Consultation Request
Date/Time Consultation Requested: 09/19/2023 - 1156
Date/Time Consultation Performed: 09/19/2023 - 1225
Requesting Provider: NITA Mendoaz
Performing Provider: John Goddard MD
Reason for Consultation: s/p R-CEA
Medical History
-
Chief Complaint: Elective carotid endarterectomy
History of Present Illness:
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
hypothyroidism and history of COVID-19 who presents with right-sided carotid endarterectomy. Patient known to vascular surgery with Dr. Champion, last office visit on 07/18/2023. Patient has known high-grade right internal carotid proximal stenosis of
>90%. She also has calcified plaque in the left ICA with 60% stenosis. There is also likely soft plaque in the common carotid artery just proximal to the bifurcation. Surgical revascularization was discussed including its benefits and risks.
Patient consented to right carotid endarterectomy that she obtained today. She underwent right carotid endarterectomy with bovine pericardial patch angioplasty with intraoperative EEG/SSEP monitoring. There were no complications and patient was
transferred to the ICU postoperatively for further care. Critical care services consulted for additional management/recommendations.
When I saw the patient she was in bed, in no acute distress. Heart rate 66, BP 124/55 (via A-line), BP 91/62 via NIBP, and she is saturating 96% on room air. She is on IV fluids with NS 0.9% @ 80 cc/hr. Patient has some pain at the right side of
her neck at the operative site, otherwise she feels well. Denies chest pain, headache, shortness of breath, abdominal pain, fevers or chills.
PMHx: Hyperlipidemia, history of Hodgkin's lymphoma s/p chemotherapy (1996), hypertension, history of LBBB, cardiomyopathy, breast cancer, complete heart block s/p pacemaker, mild�moderate MR, history of HFrEF, CAD, aortic stenosis, hypothyroidism,
history of COVID-19 (March 2021), history of alcohol use, palpations
PSHx: , double mastectomy/reconstruction (February 2017), pacemaker (2021) colonic polyps removed x 5 (noncancerous), coronary stents (03/2023)
Past Medical History
Past Medical History: Other (Above as per HPI)
Past Surgical History: Other (Above as per HPI)
Social History
Tobacco: Non-smoker (never smoker)
Alcohol: Occasional
Drug: None
Personal:
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
Family History
Family History: CAD (Father: of [place]), Cancer (Father (unknown type); Mother: Breast cancer), Hypertension (Mother) and Other (Mother: Hyperlipidemia)
Allergies / Home Medications
Allergies
Allergy/AdvReac Type Severity Reaction Status Date / Time
sulfur hexafluoride Allergy See Verified 09/19/23 14:12
microspheres comments
[From Lumason]
Home Medications
�Medication �Instructions �Recorded �Confirmed �Last Taken �Type
furosemide 20 mg tablet (Lasix) 20 mg PO PRN PRN edema 04/15/21 09/19/23 04/07/23 06:00 History
1 tab
multivitamin with folic acid 400 1 tab PO DAILY Supplement 04/15/21 09/19/23 09/18/23 08:00 History
mcg tablet (Tab-A-Richard)
spironolactone 25 mg tablet 12.5 mg PO DAILY Fluid 04/15/21 09/19/23 09/18/23 08:00 History
retention/Swelling
aspirin 81 mg tablet,delayed 81 mg PO DAILY 03/25/23 09/19/23 09/19/23 08:00 History
release
metoprolol succinate 50 mg 50 mg PO BID 03/25/23 09/19/23 09/19/23 08:00 History
tablet,extended release 24 hr
nitroglycerin 0.4 mg sublingual 0.4 mg sublingual [id number] PRN 03/25/23 09/19/23 Unknown Rx
tablet chest pain #25 tabs
clopidogrel 75 mg tablet 75 mg PO DAILY #90 tabs 04/09/23 09/19/23 09/19/23 08:00 Rx
atorvastatin 80 mg tablet 80 mg PO DAILY 09/11/23 09/19/23 09/18/23 08:00 History
dapagliflozin propanediol 10 mg 10 mg PO DAILY 09/11/23 09/19/23 09/15/23 History
tablet (Farxiga)
sacubitril 97 mg-valsartan 103 mg 1 tab PO BID 09/11/23 09/19/23 09/18/23 08:00 History
tablet (Entresto)
Review of Systems
-
History Source: Patient
All other systems: Negative unless noted
Vitals / Labs / Diagnostic Testing
Vital Signs
Temp Pulse Resp BP Pulse Ox
97.8 F 64 17 104/61 96
09/19/23 14:42 09/19/23 16:00 09/19/23 16:00 09/19/23 15:51 09/19/23 16:23
Lab Data
09/19/23 15:18
09/19/23 15:18
Laboratory Results
09/19/23
15:18
PT 14.7 H
INR 1.14
APTT 33.2
Microbiology
09/16/23 10:14 Nose MRSA Screen - Final
No Methicillin Resistant Staphylococcus aureus isolated.
Diagnostic Testing:
Physical Exam
-
HEENT: Normocephalic and Anicteric
Cardiovascular: S1/S2 and Peripheral Edema (n)
Respiratory: Clear, Wheeze (n), Rales (n), Rhonchi (n) and Non-Labored Respirations
GI: Soft, Non Distended, Non Tender and Normal Bowel Sounds
Neurology: AO x 3 and Tremors (negative)
Skin: Warm and Dry
General: Respiratory Distress (negative), Comfortable and Chills (n)
Assessment
-
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
CAD, , MR, hypothyroidism and history of COVID-19 who presents with right-sided carotid endarterectomy. Patient known to vascular surgery with Dr. Champion, last office visit on 07/18/2023. Patient has known high-grade right internal carotid proximal
stenosis of >90%. She also has calcified plaque in the left ICA with 60% stenosis. There is also likely soft plaque in the common carotid artery just proximal to the bifurcation. Surgical revascularization was discussed including its benefits and
risks. On 09/19/2023, she underwent right carotid endarterectomy with bovine pericardial patch angioplasty with intraoperative EEG/SSEP monitoring. There were no complications and patient was transferred to the ICU postoperatively for further care.
Critical care services consulted for additional management/recommendations.
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
stenosis, hypothyroidism, history of COVID-19 (March 2021), history of alcohol use, palpations
Impression:
#Asymptomatic critical right carotid artery stenosis s/p right carotid endarterectomy with bovine pericardial patch angioplasty (POD #0)
#Obesity (BMI: 35.8)
#Hypertension
#Hyperlipidemia
#Personal history of COVID-19 (03/2021)
#History of Hodgkin's and Phoma s/p chemotherapy (99 7)
#History of left bundle branch block
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
Plan:
Postoperative surgical intensive care unit monitoring
Supplemental oxygen as needed to maintain SpO2 >90-94%
prn nebulized bronchodilators
Incentive spirometry encouraged
Aspiration precautions
Neuro and vascular checks per protocol
Maintain MAP>65
Replete electrolytes with K>4, Mg>2
Vascular surgery following-correspondence and operative notes reviewed
Maintain euglycemia with goal BG 140-180
DVT prophylaxis
Early nutrition
Early mobilization
Critical care statement: A total of 44 minutes of critical care time was provided for this patient today. This includes management of unstable vital signs, evaluation of the patient at bedside, reviewing the patient's pertinent medical records
including radiographs, microbiology, laboratory evaluations, and discussion with primary team, consultants, pharmacy, nutrition, physical therapy, case management, charge nurse, critical care nursing, and respiratory therapy.
[2023-09-19] MEDS: SUBLIMAZE 25 MCG IV (13:16)
--- NOTE | 2023-09-19 13:17 | OR.RPT ---
Operative Report
Operative Report
PROCEDURE DATE: 09/19/2023
Preoperative diagnosis: Critical right carotid artery stenosis, asymptomatic.
Postoperative diagnosis: Same
Procedure: Right carotid endarterectomy with bovine pericardial patch angioplasty and intraoperative EEG/SSEP monitoring.
Surgeon: Akira
Human Resources Assistant: SARANYA Dawn, required for all aspects of procedure including assistance with traction/countertraction, following of suture line, assistance with closure.
Complications: None
Anesthesia: General
Indications for procedure:
Critical right carotid artery stenosis, asymptomatic. Risk/benefits/alternatives of carotid endarterectomy fully discussed. Patient understood all wish to proceed.
Description of procedure:
Patient was identified brought to the operating room placed on the table in supine position. After the adequate administration of anesthesia and perioperative antibiotics she was prepped and draped in the standard surgical fashion. A standard
preoperative timeout was undertaken and everybody was in agreement the plan. A standard longitudinal incision was made in the right neck that was carried through the skin subcutaneous tissue. Using the electrocautery dissection was carried through
the platysma muscle layer and then alongside the anterior medial border of the sternocleidomastoid muscle. Then using a combination of sharp dissection with the Metzenbaum scissors and electrocautery I dissected along the anterior medial border of
the internal jugular vein. The common facial vein branch was ligated between silk ties and then divided. I then deepened my retraction. The common carotid artery was identified and carefully dissected away from the surrounding structures take
great care to avoid any injury to the structures. A vessel loop was passed around it which was double looped, but not yet tightened. Note the vagus nerve was clearly visualized and was protected from harm's way. I then continued my dissection up
the common carotid artery to the bulb staying only on the anterior surface of the carotid artery. When I got to the carotid bulb, I noted that the bifurcation was splayed posteriorly such that the internal carotid artery was directly posterior to
the external carotid and so was running posterior and deep more so than usual. Therefore I initially tried to dissect the more distal internal carotid artery, but it was proving to be slightly challenging and I felt some retraction would help.
Therefore I carefully circumferentially dissected the superior thyroid branch and external carotid artery branches, and passed Vesseloops around them. I then was able to tighten my single looped vessel loop on the external carotid artery to provide
some retraction/traction. Then I was able to more easily dissect the internal carotid artery. Then I carried the dissection up to the distal internal carotid artery. I identified where it was soft and carefully circumferentially dissected the
internal carotid artery with minimal mobilization and passed a vessel loop around it. Note the hypoglossal nerve was preserved from harm's way. The patient was given an appropriate dose of heparin 9000 units. After 3 minutes of heparin
circulation time and confirmation of optimization of the blood pressure with my anesthesiology colleagues, I clamped the distal internal carotid artery where it was soft. There was no immediate EEG or SSEP changes. After 1 minute of test clamp
time there was no changes noted. Therefore at this point, the vessel loops on the external carotid artery and superior thyroid branches were tightened and the common carotid artery was clamped where it was soft proximally. An arteriotomy was made
on the common carotid artery with an 11 blade and extended using a Espinal scissor. I extended the arteriotomy onto the mid to distal internal carotid artery. There was hard calcified plaque. No hemorrhagic plaque was noted, but it did result in
severe stenosis at the origin of the internal carotid artery. Of note, there was backbleeding in the vicinity of the internal carotid artery. I confirmed good positioning of the clamp. There appeared to be another branch medially in the proximal
internal carotid artery. However I felt that it would be easier to endarterectomized the plaque first and then search for it. Therefore, a [place] was then used to endarterectomized the plaque. An endarterectomy plane was created, and the plaque
was then endarterectomized. Distally I feathered the plaque out to a nice clean endpoint in the distal internal carotid artery. Next I endarterectomized the intima back to normal intima in the common carotid artery, and the intima was cut flush
there. I then grasped the plaque and everted plaque out of the origin of the external carotid artery. The plaque was then sent off for specimen. Next, I was able to identify the small branch from the very proximal internal carotid artery that ran
medially and cephalad. I initially tried to circumferentially dissect it which I did and placed a vessel loop around it but this distorted the distal endpoint and therefore I instead removed my vessel loop and gently placed a clip to temporarily
occlude/clamp the branch. Next, the origin of the external carotid artery was carefully visualized and any fine debris were removed with fine forceps. Proximal and distal endpoints were then carefully inspected. Any fine debris was removed with
fine forceps, and the intima was noted to be nicely adherent proximally distally. Next any fine debris were removed throughout the endarterectomy bed with fine forceps. I then flushed heparinized saline. I was very satisfied. Then, I used a
bovine pericardial patch to sew a patch angioplasty with a running 6-0 Prolene suture. Prior to completing and tying down my suture line, I backbled sequentially each branch and reclamped each branch prior to unclamping the next branch. I then
irrigated with heparinized saline. Then I completed and tied down my suture line. We then restored flow in the common carotid and external carotid arteries. In addition I removed my small clip on the additional internal carotid artery branch.
Finally, we released flow in the internal carotid artery. There was excellent pulsatile flow in all 3 vessels. There was an excellent Doppler signal in the internal carotid artery distal to the patch with a good normal low resistance Doppler
signal. There was a good Doppler signal in the external carotid artery as well. A couple 6-0 Prolene [id number] sutures were placed along any bleeding points along the suture line. Protamine was given to reverse the heparin. Hemostasis was
completely achieved. We then irrigated and confirmed full hemostasis. I then closed in layers with 2-0 Vicryl layer to reapproximate the sternocleidomastoid muscle, followed by 3-0 Vicryl platysma muscle running layer, followed by 4 Monocryl
subcuticular stitch. Dermabond was applied. The patient tolerated procedure well. She awoke moving all extremities to command with tongue in the midline.
[2023-09-19] MEDS: NSS 1000 IV (14:30)
[2023-09-19 15:28] LABS: Hematocrit 34.9 % (37.0-47.0); Hemoglobin 12.2 g/dL (12.0-16.0); Mean Corpuscular Hgb 30.4 pg (27.0-31.0); Mean Platelet Volume 11.6 fL (7.4-10.4); Platelet Count 182 10^3/uL (130-400); Red Blood Cell Count 4.01 10^6/uL (4.20-5.40); Red Cell Dist. Width 13.8 % (11.5-14.5); White Blood Cell Count 10.6 10^3/uL (4.8-10.8)
[2023-09-19] MEDS: HEPARIN 5000 UNITS SC ×2 (15:35→23:13)
[2023-09-19 15:43] LABS: INR 1.14; PT 14.7 Sec (11.4-14.6)
[2023-09-19 15:44] LABS: APTT 33.2 Sec (23.4-35.0)
[2023-09-19 15:55] LABS: Blood Urea Nitrogen 14 mg/dl (7-17); Calcium 8.7 mg/dl (8.4-10.2); Carbon Dioxide 22 mmol/L (22-30); Chloride 109 mmol/L (98-107); Estimated Creatinine Clearance 119 ml/min; Glucose 149 mg/dl (70-99); Potassium 4.1 mmol/L (3.5-5.1); Sodium 139 mmol/L (135-145); eGFR > 60.00
[2023-09-19 16:06] LABS: Magnesium 1.7 mg/dl (1.6-2.3)
--- NOTE | 2023-09-19 16:11 | PTCARENOTE ---
Rec'd patient from PACU around 1400. Patient alert and oriented. MAEx4. Smile symmetrical. Tongue midline. Right neck incision site intact. VSS. 100% AV paced on tele monitor. +Murmur. Pulse ox 97% on 2L nc. Lung sounds cta. +BS. No urge to void at
current time. Tolerating clear liquids. Diet advanced per orders. Right radial chantal zeroed and transduced. IVFs infusing through peripheral INT.
[2023-09-19 16:25] LABS: Magnesium 1.9 mg/dl (1.6-2.3)
--- NOTE | 2023-09-19 16:33 | PTCARENOTE ---
Patient resting comfortably. Set up in bed to eat dinner. No complaints. VSS.
--- NOTE | 2023-09-19 18:27 | PTCARENOTE ---
Patient weaned to RA. Pulse ox 95%. Placed on bedpan. Large amount voided. 575 cc's + excess saturated on pad. Kasandra care performed.
[2023-09-19] MEDS: ENTRESTO 97 MG/103 MG 1 TAB PO (19:56)
[2023-09-19] MEDS: TOPROL XL 50 MG PO (19:56)
--- NOTE | 2023-09-19 20:08 | PTCARENOTE ---
Received patient AAOx3, following commands, denying pain. Q1H neuro checks, tongue midline, smile symmetrical, pupils 3 mm, equal, round, reactive to light and strengths equal. AV paced, 60s, BP 100s/50s-70s, normothermic, no edema. 95% on room air,
lung sounds clear. Abdomen soft, round, obese, positive bowel sounds. Bedpan to void. Right neck surgical site NICOLE, approximated, surgical adhesive present. Right chantal zeroed, flushed, and leveled. PIVs patent, WNL. NSS ongoing per order. Call mcdowell
within reach.
--- NOTE | 2023-09-19 23:20 | PTCARENOTE ---
Patient assessment unchanged from previous, call mcdowell within reach.
[2023-09-20] VITALS (7 sets, daily range): BP systolic 99–119; BP diastolic 56–62; BMI 35.5
[2023-09-20] MEDS: NSS 1000 IV (01:26)
--- NOTE | 2023-09-20 05:29 | PTCARENOTE ---
Patient assessment unchanged from previous, labs sent.
[2023-09-20 05:42] LABS: Hematocrit 34.4 % (37.0-47.0); Hemoglobin 11.8 g/dL (12.0-16.0); Mean Corp Hgb Conc. 34.3 g/dL (33.0-37.0); Mean Corpuscular Hgb 30.8 pg (27.0-31.0); Mean Corpuscular Volume 89.8 fL (81.0-99.0); Mean Platelet Volume 11.4 fL (7.4-10.4); Platelet Count 180 10^3/uL (130-400); Red Blood Cell Count 3.83 10^6/uL (4.20-5.40); Red Cell Dist. Width 13.7 % (11.5-14.5); White Blood Cell Count 14.1 10^3/uL (4.8-10.8)
[2023-09-20 05:55] LABS: Blood Urea Nitrogen 13 mg/dl (7-17); Calcium 8.9 mg/dl (8.4-10.2); Carbon Dioxide 22 mmol/L (22-30); Chloride 111 mmol/L (98-107); Estimated Creatinine Clearance 119 ml/min; Glucose 139 mg/dl (70-99); Sodium 139 mmol/L (135-145); eGFR > 60.00
[2023-09-20 06:12] LABS: INR 1.11; PT 14.4 Sec (11.4-14.6)
[2023-09-20 06:13] LABS: APTT 30.4 Sec (23.4-35.0)
--- NOTE | 2023-09-20 07:37 | PTCARENOTE ---
Received patient from shift supervisor melting RN. AAOx3. Neuro checks WDL. AV/V paced on shelter monitor. HRs 60s. SaO2 94% on room air. VSS. Right neck procedural site NICOLE & approximated. Right a-line dressing CDI. A-line zeroed, flushed and leveled. BPs
correlating with automatic BP cuff. IVF infusing through PIV. Pt denies any pain at this time. Resting in bed call mcdowell within reach. Assessment documented.
--- NOTE | 2023-09-20 08:00 | PTCARENOTE ---
Received patient from previous RN. AAOx3. VSS. V paced HRs 60s. 96% on RA. + bs. BRP. Right neck surgical site approximated and SENIOR DEVELOPER. PIVx2 patent. Patient for hopeful d/c this afternoon. will continue to monitor.
--- NOTE | 2023-09-20 08:10 | W.PN.VS ---
Addendum entered and electronically signed by Wood Serrano III, MD 09/20/23 12:14:
This patient was seen and examined with NITA Scott. I agree with the history and physical exam as well as the assessment and plan.
Signed:
Wood Serrano III, MD
[facility]
[phone] (kbjv)
Original Note:
Today's Communication / Plan
-
Patient seen and examined at bedside with Dr. Wood Serrano III, below plan reviewed with attending.
Assessment/Plan
-
Assessment: 53-year-old female POD #1 right carotid endarterectomy
Plan:
Discontinue IV fluid
Discontinue arterial line
OOB to chair with progression to ambulation as tolerated
Continue antiplatelet and statin therapy
Likely discharge later today
Subjective Data
-
Date of Service: September 20, 2023
Patient seen and examined at bedside, offers no complaints. Denies nausea, vomiting, fever, chills, dysphagia, vision changes, headache, or unilateral weakness. Reports tolerating p.o. diet.
Objective Data
-
Vital Signs
Temp Pulse Resp BP Pulse Ox
97.6 F 75 24 118/60 94
09/20/23 07:00 09/20/23 07:00 09/20/23 07:00 09/20/23 04:00 09/20/23 07:00
Intake and Output
09/19/23 09/20/23 09/21/23
06:59 06:59 06:59
Intake Total 2750 / 2830 80 / 80
Output Total 5 / 2125
Balance 625 / 705 80 / 80
Intake:
Oral fluids 1290 / 1290
IV fluids (Total) 1460 / 1540 80 / 80
Normosol 100 / 100
Nss 1,000 ml @ 80 mls/hr IV . 1360 / 1440 80 / 80
[id number] SARAH Rx#:[id number]
Output:
Urine, Voided 2124
Other:
How many times incontinent 1
SATURATED amount urine
Lab Results
09/20/23 05:20
09/20/23 05:20
Calcium 8.9 mg/dl (8.4-10.2) 09/20/23 05:20
Magnesium 1.7 mg/dl (1.6-2.3) 09/19/23 15:18
Magnesium Cancelled 09/19/23 15:18
Physical Exam
-
AAOx3, no apparent distress
Right neck surgical incision CDI, no evidence of edema, no evidence of hematoma, all surrounding compartments soft, face symmetrical, tongue midline
No tachycardia
No dyspnea on room air
ABD nontender, nondistended
Bilateral upper and lower extremities with equal strength
--- NOTE | 2023-09-20 08:57 | W.PN.INTV ---
Addendum entered and electronically signed by John Goddard MD 09/20/23 14:08:
Total time spent today was 55 minutes for this encounter. Time includes reviewing laboratory test/imaging results, reviewing pertinent medical records, obtaining and reviewing medical history, performing an appropriate exam, ordering medications,
tests and procedures. Time also includes documentation of this encounter, coordinating patient care and communicating with other healthcare professionals. Total time does not include separately billed tests performed on this date of service.
Original Note:
Today's Communication / Plan
Recommendations
Up OOB as tolerated
Pain control
Encourage incentive spirometer use 10x/hr for at least 4 hrs a day
Patient doing well and is awaiting discharge home. Video Effects Editor/Pulmonary service will now sign off. Please reconsult if there are any additional questions/concerns, or if patient's respiratory status deteriorates.
Assessment
-
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
CAD, , MR, hypothyroidism and history of COVID-19 who presents with right-sided carotid endarterectomy. Patient known to vascular surgery with Dr. Champion, last office visit on 07/18/2023. Patient has known high-grade right internal carotid proximal
stenosis of >90%. She also has calcified plaque in the left ICA with 60% stenosis. There is also likely soft plaque in the common carotid artery just proximal to the bifurcation. Surgical revascularization was discussed including its benefits and
risks. On 09/19/2023, she underwent right carotid endarterectomy with bovine pericardial patch angioplasty with intraoperative EEG/SSEP monitoring. There were no complications and patient was transferred to the ICU postoperatively for further care.
Critical care services consulted for additional management/recommendations.
Chronic conditions CHIEF SUSTAINABILITY OFFICER: Hyperlipidemia, history of Hodgkin's lymphoma s/p chemotherapy (1996), hypertension, history of LBBB, cardiomyopathy, breast cancer, complete heart block s/p pacemaker, mild�moderate MR, history of HFrEF, CAD, aortic
stenosis, hypothyroidism, history of COVID-19 (March 2021), history of alcohol use, palpations
Impression:
#Asymptomatic critical right carotid artery stenosis s/p right carotid endarterectomy with bovine pericardial patch angioplasty (POD #1)
#Obesity (BMI: 35.8)
#Hypertension
#Hyperlipidemia
#Personal history of COVID-19 (03/2021)
#History of Hodgkin's and Phoma s/p chemotherapy (99 7)
#History of left bundle branch block
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
Plan:
Postoperative surgical intensive care unit monitoring
Supplemental oxygen as needed to maintain SpO2 >90-94%
prn nebulized bronchodilators
Incentive spirometry encouraged
Aspiration precautions
Neuro and vascular checks per protocol
Maintain MAP>65
Replete electrolytes with K>4, Mg>2
Vascular surgery following-correspondence and operative notes reviewed
Maintain euglycemia with goal BG 140-180
DVT prophylaxis
Early nutrition
Early mobilization
Patient doing well and is awaiting discharge home. Video Effects Editor/Pulmonary service will now sign off. Thank you for allowing us to be involved in the care of this patient. Please reconsult if there are any additional questions/concerns, or if
patient's respiratory status deteriorates.
Subjective Dataa
Subjective Data
Date of Service:
Date of Service: September 20, 2023
Chief Complaint: Video Effects Editor Follow Up
Subjective:
Patient seen and evaluated this morning. No acute events reported from overnight. Saturating 96% on room air, heart rate 70. BP 109/57. Patient feels well. Eager to home. Has some mild right-sided neck pain, but denies headache, chest pain,
shortness of breath, abdominal pain, fevers or chills.
Review of Systems
General: Other (Negative unless mentioned above)
Objective Data
Data Reviewed
Vital Signs / I&O / Oxygen:
Vital Signs
Temp Pulse Resp BP Pulse Ox
97.6 F 74 18 109/57 93
09/20/23 07:00 09/20/23 09:15 09/20/23 08:00 09/20/23 09:15 09/20/23 08:00
Intake and Output
09/19/23 09/20/23 09/21/23
06:59 06:59 06:59
Intake Total 2750 / 2830 160 / 160
Output Total 2125 / 2125
Balance 625 / 705 160 / 160
SaO2 93
Nasal Cannula flow liters per 2
minute
Physical Exam
General: Respiratory Distress (Negative) and Comfortable
HEENT: Normocephalic, Anicteric and Other (Right vertical scar on right anterior neck)
Cardiovascular: S1-S2, Murmur (MALIK heard in RUSB grade IV/) and Peripheral Edema (Negative)
Respiratory: Wheeze (Negative), Crackles (Bibasilar to middle lung santoyo bilaterally), Rhonchi (Negative) and Non-Labored Respirations
GI: Soft, Non Distended, Non Tender and Normal Bowel Sounds
Neurology: AO x 3 and Tremors (Negative)
Skin: Warm, Dry and Jaundice (Negative)
Labs/Micro/Reports
Lab Data
09/20/23 05:20
09/20/23 05:20
Laboratory Results
09/19/23 09/20/23
15:18 05:20
PT 14.7 H 14.4
INR 1.14 1.11
APTT 33.2 30.4
Microbiology
09/16/23 10:14 Nose MRSA Screen - Final
No Methicillin Resistant Staphylococcus aureus isolated.
[2023-09-20] MEDS: PLAVIX 75 MG PO (09:14)
[2023-09-20] MEDS: ASPIR LOW (ENTERIC COATED) 81 MG PO (09:15)
[2023-09-20] MEDS: FARXIGA 10 MG PO (09:15)
[2023-09-20] MEDS: ALDACTONE 12.5 MG PO (09:15)
[2023-09-20] MEDS: ENTRESTO 97 MG/103 MG 1 TAB PO (09:15)
[2023-09-20] MEDS: TOPROL XL 50 MG PO (09:15)
[2023-09-20] MEDS: LIPITOR 80 MG PO (09:15)
[2023-09-20] MEDS: THERAGRAN 1 TABLET PO (09:16)
[2023-09-20] MEDS: HEPARIN 5000 UNITS SC (09:21)
--- NOTE | 2023-09-20 11:30 | CM ---
CM following re: discharge planning.
Reviewed pt's chart, met wit pt and pt's Mario at bedside.
Pt is a 53 year old female admitted with primary dx of POD #1 R CEA. Per Vascula surgery, pt will be discharge home later this afternoon. Pt is aware, expressed her agreement and she stated she will not need any after care VN services.
Pt reports she lives with in a 2SH, 3 steps to enter, has supportive son. 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
PCP: Renee Murcia
Pharmacy: [facility]
D/C plan: home no needs. to transport.
--- NOTE | 2023-09-20 14:16 | PTCARENOTE ---
left via wheelchair after iv and tele removed and all d/c instructions gone over with patient as well as med list and appointments. all belongings taken with her.
== END 2023-09-20 14:25 | disposition home or self-care (01) | DRG 38 ==
LOC: ICU 08:19
PROVIDERS: Nurse Practitioner Acute Care; ADMITTING PHYSICIAN Surgery Vascular Surgery; CONSULT PHYSICIAN Internal Medicine Critical Care Medicine; FAMILY PHYSICIAN Family Medicine
PROC: 03CK0ZZ Extirpation of Matter from Right Internal Carotid Artery, Open Approach (ICD-10-PCS; 2023-09-19)
PROC: 03UK0KZ Supplement Right Internal Carotid Artery with Nonautologous Tissue Substitute, Open Approach (ICD-10-PCS; 2023-09-19)
DX: I65.23 Occlusion and stenosis of bilateral carotid arteries (principal); I44.2 Atrioventricular block, complete; I50.22 Chronic systolic (congestive) heart failure; I11.0 Hypertensive heart disease with heart failure; I25.5 Ischemic cardiomyopathy; I25.10 Atherosclerotic heart disease of native coronary artery without angina pectoris; I44.7 Left bundle-branch block, unspecified; I08.0 Rheumatic disorders of both mitral and aortic valves; E03.9 Hypothyroidism, unspecified; E78.5 Hyperlipidemia, unspecified; E66.9 Obesity, unspecified; Z68.35 Body mass index [BMI] 35.0-35.9, adult; Z95.0 Presence of cardiac pacemaker; Z95.5 Presence of coronary angioplasty implant and graft; Z85.71 Personal history of Hodgkin lymphoma; Z85.3 Personal history of malignant neoplasm of breast; Z92.21 Personal history of antineoplastic chemotherapy; Z82.49 Family history of ischemic heart disease and other diseases of the circulatory system; Z79.82 Long term (current) use of aspirin; Z79.02 Long term (current) use of antithrombotics/antiplatelets; Z79.84 Long term (current) use of oral hypoglycemic drugs; Z86.16 Personal history of COVID-19
CPT/HCPCS: 88304; 88311; 35301; 36415; 71045; 71046; 80048; 83735; 85025; 85027; 85610; 85730; 86850; 86900; 86901; 87070; 93005; 95938; 95941; 95955

== ENCOUNTER → 2023-10-30 10:33 | Outpatient (REF) | payer BC, SELFPAY | LOC: RAD 10:33 | PROVIDERS: ATTENDING PHYSICIAN Registered Nurse; FAMILY PHYSICIAN Family Medicine | DX: I65.29 Occlusion and stenosis of unspecified carotid artery (principal) | CPT/HCPCS: 93880 ==

== ENCOUNTER → 2023-11-05 13:59 | Outpatient (REF) | payer BC, SELFPAY | LOC: HWRAD 13:59 | PROVIDERS: ATTENDING PHYSICIAN Surgery Vascular Surgery; FAMILY PHYSICIAN Family Medicine | DX: I65.21 Occlusion and stenosis of right carotid artery (principal); Z98.890 Other specified postprocedural states | CPT/HCPCS: 70496; 70498; Q9967 ==

== ENCOUNTER → 2024-03-31 08:24 | Outpatient (REF) | payer BC, SELFPAY | LOC: HWRCS 08:24 | PROVIDERS: ATTENDING PHYSICIAN Internal Medicine Cardiovascular Disease; FAMILY PHYSICIAN Family Medicine | DX: I50.20 Unspecified systolic (congestive) heart failure (principal) | CPT/HCPCS: 93306 ==

== ENCOUNTER → 2024-05-19 09:56 | Outpatient (REF) | payer BC, SELFPAY | LOC: RAD 09:56 | PROVIDERS: ATTENDING PHYSICIAN Surgery Vascular Surgery; FAMILY PHYSICIAN Family Medicine | DX: I65.23 Occlusion and stenosis of bilateral carotid arteries (principal) | CPT/HCPCS: 93880 ==

== ENCOUNTER → 2024-11-10 08:30 | Outpatient (REF) | payer BC, SELFPAY | LOC: RAD 08:30 | PROVIDERS: ATTENDING PHYSICIAN Surgery Vascular Surgery; FAMILY PHYSICIAN Family Medicine | DX: I65.23 Occlusion and stenosis of bilateral carotid arteries (principal) | CPT/HCPCS: 93880 ==